=== PATIENT | female | born 1950 | race Caucasian/White ===

== ENCOUNTER 2023-05-15 13:41 | Emergency (ER) | payer MEDICARE, BC ==
[~2023-05-15] VITALS: Ht 170.2 cm; Wt 63.4 kg
[2023-05-15 13:50] VITALS: TEMP 97.8
--- NOTE | 2023-05-15 14:12 | NUR ---
PT TAKEN TO CT.
[2023-05-15] MEDS ORDERED: TETanus/Pertussis (Acell)/Diphther VAC/PF (Tdap-Adult) 0.5ml syringe IMVAC ONE (14:50)
[2023-05-15] MEDS ORDERED: LIDOcaine/PRILOcaine 5gm cream TP ONE (14:50)
[2023-05-15] MEDS ORDERED: bacitracin 15gm ointment TP ONE (15:05)
[2023-05-15 15:15] VITALS: BP 102/64; PULSE 64; RESP 17; O2SAT 100
[2023-05-15] MEDS ORDERED: acetaminophen 325mg tablet PO ONE (15:25)
--- NOTE | 2023-05-15 16:04 | NUR ---
WOUND IRRIGATED WITH STERILE WATER/CLEANED WITH IODINE/BACITRACIN OINTMENT APPLIED/NONSTICK BANDAGE WITH PAPER TAPE APPLIED.
== END 2023-05-15 16:16 | disposition home or self-care (01) ==
LOC: ER 13:42
DX: S00.81XA Abrasion of other part of head, initial encounter (principal); W19.XXXA Unspecified fall, initial encounter; S09.90XA Unspecified injury of head, initial encounter; Y93.89 Activity, other specified; Y92.89 Other specified places as the place of occurrence of the external cause; Y99.8 Other external cause status
CPT/HCPCS: 70450; 73030; 90471; 90715; 99285; A6258; A6449

== ENCOUNTER 2023-05-18 13:30 | Emergency (ER) | payer MEDICARE, BC ==
[~2023-05-18] VITALS: Ht 170.2 cm; Wt 63.8 kg
[2023-05-18] MEDS ORDERED: ONDA4TAB12 PO (14:27)
[2023-05-18] MEDS ORDERED: MECL-226 PO (14:27)
[2023-05-18 14:37] VITALS: BP 98/59; PULSE 75; RESP 16; TEMP 97.8; O2SAT 99
== END 2023-05-18 14:46 | disposition home or self-care (01) ==
LOC: ER 13:30
DX: S06.0X0A Concussion without loss of consciousness, initial encounter (principal); X58.XXXA Exposure to other specified factors, initial encounter; Y93.89 Activity, other specified; Y92.89 Other specified places as the place of occurrence of the external cause; Y99.8 Other external cause status
CPT/HCPCS: 82948; 99284

== ENCOUNTER 2024-07-14 10:40 | Emergency (ER) | payer MEDICARE, BC ==
[~2024-07-14] VITALS: Ht 170.2 cm; Wt 66.5 kg
[~2024-07-14 10:40] MED LIST: MECL-226 PO; ONDA-243 PO
[2024-07-14 11:08] LABS: BILIRUBIN,URINE NEGATIVE (Neg); COLOR,URINE YELLOW (Yellow); GLUCOSE, URINE >=1000 mg/dl (Neg); KETONES,URINE NEGATIVE (Neg); LEUKOCYTE ESTERASE ,URINE NEGATIVE (Neg); NITRITES, URINE POSITIVE (Neg); OCCULT BLOOD,URINE LARGE (Neg); PROTEIN,URINE 100 mg/dl (Neg); UROBILINOGEN,URINE 0.2 E.U/dL (0.2-1.0)
[2024-07-14 11:10] LABS: CLARITY,URINE SLIGHTLY CLOUDY (Clear); UA COLLECTION TYPE CLN CATCH MIDSTREAM
[2024-07-14 11:16] LABS: BACTERIA,URINE 4+ /HPF (Neg); RBC,URINE 50-100 /HPF (0-2); SQUAMOUS EPITHELIAL CELL,UR MODERATE /LPF (FEW); WBC,URINE TNTC /HPF (0-4)
[2024-07-14 11:17] LABS: MUCUS STRANDS FEW /LPF (Neg); WBC CLUMPS,URINE MODERATE /HPF (NEGATIVE)
[2024-07-14] MEDS ORDERED: CEPH-585 PO (11:45)
[2024-07-14] MEDS: cephalexin 250mg capsule PO ONE (11:51)
[2024-07-14] MEDS: phenazopyridine 100mg tablet PO ONE (11:51)
[2024-07-14 11:57] VITALS: BP 126/87; PULSE 70; RESP 16; TEMP 98; O2SAT 99
== END 2024-07-14 11:58 | disposition home or self-care (01) ==
LOC: ER 10:41
DX: N39.0 Urinary tract infection, site not specified (principal); Z79.899 Other long term (current) drug therapy; Z95.0 Presence of cardiac pacemaker
CPT/HCPCS: 81001; 87077; 87088; 87186; 99283

== ENCOUNTER 2024-07-25 08:51 | Emergency (ER) | payer MEDICARE, BC ==
[~2024-07-25] VITALS: Ht 170.2 cm; Wt 66.7 kg
[~2024-07-25 08:51] MED LIST changes: +CEPH-585 PO
[2024-07-25 08:55] VITALS: PULSE 87
[2024-07-25] MEDS ORDERED: METR-159 PO (09:28)
[2024-07-25 09:46] VITALS: BP 117/73; RESP 18; TEMP 97.8; O2SAT 93
== END 2024-07-25 09:49 | disposition home or self-care (01) ==
LOC: ER 08:51
DX: B37.31 Acute candidiasis of vulva and vagina (principal); Z79.2 Long term (current) use of antibiotics; Z79.899 Other long term (current) drug therapy; Z95.0 Presence of cardiac pacemaker
CPT/HCPCS: 99283

== ENCOUNTER 2025-04-13 12:07 | Emergency (ER) | payer MEDICARE, BC ==
[~2025-04-13] VITALS: Ht 170.2 cm; Wt 52.9 kg
[2025-04-13 12:10] VITALS: BP 120/63; PULSE 92; RESP 16; TEMP 97; O2SAT 99
[2025-04-13] MEDS ORDERED: SULF1TAB49 PO (13:01)
--- NOTE | 2025-04-13 13:02 | Physician Documentation ---
History of Present Illness ~ Chief Complaint: Toe pain Stated Complaint: FOOT INFECTION Time Seen by MD: 12:48 Primary Medical Doctor: Brian rosa Source: patient Mode of Arrival: POV Exam Limitations: no limitations HPI 58-year-old female noticed that her left great toenail was getting puffy and red after getting a pedicure would not pop the area that looked like there was purulent drainage under. No other so she does have concerns started a couple of days ago Tetanus witin 5 years: Yes (Apr 2023) Medication Reconciliation Allergies: Coded Allergies: No Known Allergies (Unverified , 07/25/24) Scheduled Cephalexin*Monohydrate* (Keflex*), 1 CAP PO QID Scheduled PRN Meclizine HCl (Meclizine HCl), 1 TAB PO Q8H PRN for dizziness/vertigo ONDANSETRON ODT 4mg tablet (Ondansetron Odt), 1 TABLET PO Q6H PRN for nausea/vomiting Past Medical History Past Medical History: No Pertinent History, *CARDIOVASCULAR* Past Surgical History: pacemaker Lives In: Home Review of Systems All Other Systems at this time: Reviewed and Negative Integumentary: Reports: see HPI Physical Exam Vital Signs: RN Vital Signs have been reviewed: Yes, Temperature: 97.0, Source: Temporal, Heart Rate: 92, Respiratory Rate: 16, BP: 120/63, Pulse Oximetry: 99, Weight: 52.900 General Appearance: alert, WD/WN, no apparent distress Respiratory: no respiratory distress Chest: no accessory muscle use Cardiovascular: regular rate, rhythm Digit: infection, swelling Digit left medial side by tip of her toenail Nail: normal inspection Progress Results/Orders Results/Orders Vital Signs 04/13/25 12:10 Temp 97.0 Pulse 92 Resp 16 B/P (MAP) 120/63 Pulse Ox 99 Medical Decision Making Findings Paronychia to left great toe medial side 18 gauge to start drainage and antibiotics prescribed to follow up with primary care Departure Time of Disposition: 13:00 Disposition: 01 HOME / SELF CARE / HOMELESS Impression: Primary Impression: Paronychia due to ingrown nail Condition: Stable Discharge Instructions: Ingrown Toenail Additional Instructions: warm water soaks daily keep it clean and dry afterwards take antibiotics as prescribed follow up as needed Referrals: NO PRIMARY CARE PROVIDER (PCP) Prescriptions Sulfamethoxazole/Trimethoprim (Bactrim Ds Tablet) 800 Mg-160 Mg Tablet 1 TAB PO Q12H for 7 Days, #14 TAB Prov: BEATA AMADOR NP 04/13/25 Education Educated: Patient Educated regarding: diagnosis, treatment, need for follow up Signature Scribe Signature: no scribe Attestation: The note accurately reflects work and decisions made by me.Beata BROWNE 04/13/25 13:01 BEATA AMADOR NP Apr 13, 2025 13:02
== END 2025-04-13 13:23 | disposition home or self-care (01) ==
LOC: ER 12:07
DX: L03.032 Cellulitis of left toe (principal); Z95.0 Presence of cardiac pacemaker
CPT/HCPCS: 99283